=== PATIENT | female | born 1975 | race Caucasian/White ===

== ENCOUNTER 2018-05-20 22:44 | Emergency (ER) | payer OTHER ==
[~2018-05-20] VITALS: Ht 152.4 cm; Wt 113.6 kg
[2018-05-20] MEDS ORDERED: PROAAER10 INH (23:05)
[2018-05-20] MEDS ORDERED: LEVO-97 PO (23:05)
[2018-05-20] MEDS ORDERED: BREO1INH INH (23:05)
[2018-05-20] MEDS ORDERED: DULO1CAP3 PO (23:05)
[2018-05-20] MEDS ORDERED: MONT10TA2 PO (23:05)
[2018-05-20] MEDS ORDERED: CETI5TA PO (23:05)
[2018-05-20] MEDS ORDERED: PROP80CA PO (23:05)
[2018-05-20] MEDS ORDERED: TRAZO50TA PO (23:05)
[2018-05-20] MEDS ORDERED: OMEP20TA PO (23:05)
[2018-05-20] MEDS ORDERED: METF500T13 PO (23:05)
[2018-05-21] MEDS ORDERED: diphenhydrAMINE INJ 50MG/ML VIAL (J1200) IV STA (00:52)
[2018-05-21] MEDS ORDERED: dexameTHASONE 20 MG/5 ML VIAL (J1100) IV ONE (01:00)
[2018-05-21] MEDS ORDERED: PRED20TA PO (02:06)
[2018-05-21 02:18] VITALS: BP 181/97
== END 2018-05-21 02:24 | disposition home or self-care (01) ==
LOC: M ED 22:44
DX: R22.0 Localized swelling, mass and lump, head (principal); R21 Rash and other nonspecific skin eruption; T78.40XA Allergy, unspecified, initial encounter; X58.XXXA Exposure to other specified factors, initial encounter; Y92.89 Other specified places as the place of occurrence of the external cause; E11.9 Type 2 diabetes mellitus without complications; I10 Essential (primary) hypertension; J45.909 Unspecified asthma, uncomplicated; K21.9 Gastro-esophageal reflux disease without esophagitis; Z90.89 Acquired absence of other organs
CPT/HCPCS: 96374; 96375; 99283; J1100; J1200